=== PATIENT | male | born 1970 | race Caucasian/White ===

== ENCOUNTER 2021-10-30 20:34 | Emergency (ER) | payer OTHER ==
[~2021-10-30] VITALS: Ht 180.3 cm; Wt 81.6 kg
[2021-10-30] MEDS ORDERED: ACETAMINOPHEN650 M2 PO (22:54)
== END 2021-10-30 22:59 | disposition home or self-care (01) ==
LOC: ER 20:34
DX: R53.1 Weakness (principal); Z20.822 Contact with and (suspected) exposure to COVID-19

== ENCOUNTER → 2022-11-01 | Emergency (ER) | payer OTHER ==
[~2022-11-01] VITALS: Ht 180.3 cm; Wt 82.6 kg
[~2022-11-01] MED LIST: ACETAMINOPHEN650 M2 PO
== END | disposition home or self-care (01) ==
LOC: ER 16:29
DX: H81.10 Benign paroxysmal vertigo, unspecified ear (principal)

== ENCOUNTER 2025-03-09 21:45 | Emergency (ER) | payer OTHER ==
[~2025-03-09] VITALS: Ht 180.3 cm; Wt 85.7 kg
[2025-03-10] MEDS ORDERED: 0.9 % SODIUM CHLORIDE 1,000 ML IV STA (03:01)
[2025-03-10 03:24] LABS: BASO % 0.3 % (0.1-1.2); EOS # 0.06 (0.04-0.54); EOS % 0.7 % (0.7-7.0); LYMPH # 2.94 (1.18-3.74); LYMPH % 33.4 % (19.3-53.1); MEAN PLATELET VOLUME 10.50 fl (9.4-12.4); MONO # 0.89 (0.24-0.82); MONO % 10.1 % (4.7-12.5); NEUT # 4.88 (1.56-6.13); NEUT % 55.4 % (34.0-71.1); RED CELL DISTRIBUTION WIDTH 12.3 % (11.6-14.4)
[2025-03-10 03:54] LABS: URINE APPEARANCE Clear; URINE BILIRRUBIN Negative (NEGATIVE); URINE BLOOD Negative; URINE COLOR Yellow; URINE GLUCOSE Negative (NEGATIVE); URINE KETONE Negative (NEGATIVE); URINE LEUKOCYTE Negative; URINE NITRATE Negative; URINE PROTEIN Negative (NEGATIVE); URINE UROBILINOGEN 0.2 E.U./dl
[2025-03-10 04:06] LABS: TYPE CELLS SQUAMOUS; URINE BACTERIA 1.1 uL (0.0-1933); URINE CAST 0.00 uL (0.0-1.40); URINE EPITHELIAL CELLS 0.6 uL (0.0-38.8); URINE RBC 0.7 uL (0.0-20.8); URINE WBC 1.3 uL (0.0-23.2)
[2025-03-10 04:23] LABS: ALT/SGPT 57.0 U/L (12-78); AST/SGOT 20.0 U/L (15-37); BILIRUBIN TOTAL 0.53 mg/dL (0.3-1.2); BUN CREA RATIO 11.0 (7.0-25.0); CREATININE SERUM 0.91 mg/dL (0.70-1.30); GFR 87.15; GLOBULINA 4.0 G/DL (2.4-3.5); GLUCOSE FASTING 84.0 mg/dL (65-100); OSMOLALITY SERUM 281.0 MOSM/KG (275-295); TSH 2.27 uIU/mL (0.358-3.74)
[2025-03-10 04:49] LABS: COVID-19 AG NEGATIVE (NEGATIVE)
== END 2025-03-10 06:05 | disposition home or self-care (01) ==
LOC: ER 21:45
DX: R53.1 Weakness (principal); Z20.822 Contact with and (suspected) exposure to COVID-19